=== PATIENT | female | born 1965 | race Caucasian/White ===

== ENCOUNTER → 2017-11-06 09:11 | Outpatient (CLI) | payer OTHER, SELFPAY ==
--- NOTE | 2017-11-06 | DI.ECHO.S_ITS ---
[place] [facility]+ [facility] +---------+ : : [address] : : : : [id number] : : : : Phone: [phone]+ Echocardiogram Report + + :Name: MIKA CARBALLO Study Date: 11/06/2017 Height: 66 in : :[facility] Exam Location: [facility] Weight: 250 lb : : Gender: Female BSA: 2.2 m2 : :: 1965 Age: 52 yrs BP: 160/95 mmHg: :Reason For Study: Hypertension : :Ordering Physician: LEI Bhardwaj : :Lisa Performed By: Edith Page : + + Interpretation Summary Normal sinus rhythm. Normal LV size; borderline concentric left ventricular hypertrophy; normal wall motion and left ventricular systolic function. The ejection fraction is estimated to be 60-65% There are no significant valvular abnormalities. No evidence of hypertensive heart disease. Procedure: A two-dimensional transthoracic echocardiogram with color flow and Doppler was performed. The study quality was technically adequate. There is no prior echocardiogram noted for this patient. A contrast injection of Definity was performed to improve assessment of LV function. The patient was in normal sinus rhythm during the exam. Left Ventricle: There is borderline concentric left ventricular hypertrophy. The left ventricle is normal in size. The ejection fraction is estimated to be 60-65%. Left ventricular wall motion is normal. Assessment of diastolic parameters indicates normal left ventricular diastolic function and normal filling pressures. Right Ventricle: The right ventricle is normal in size and function. Atria: Both atria are normal in size. There is no Doppler evidence for an interatrial shunt. Mitral Valve: The mitral valve is normal in structure and function. There is trace mitral regurgitation. Aortic Valve: The aortic valve is trileaflet. The aortic valve opens well. No aortic regurgitation is present. Tricuspid Valve: The tricuspid valve is normal in structure and function. There is a trace or physiologic amount of tricuspid regurgitation. The right ventricular systolic pressure is estimated at 22 mmHg assuming a right atrial pressure of 3 mm Hg. Pulmonic Valve: The pulmonic valve is not well visualized. There is trace pulmonic regurgitation. Great Vessels: The aortic root is normal size. The ascending aorta is mildly enlarged. The aortic arch could not be visualized. The pulmonary artery is not well visualized, but is probably normal size. The IVC is of normal diameter and collapses greater than 50% with a sniff. This suggests a low right atrial pressure of 3 mm Hg. Pericardium/ Pleura There is no pericardial effusion. There is no pleural effusion. MMode/2D Measurements & Calculations LVIDd: 4.7 cm Ao root diam: 3.5 cm LVIDs: 3.0 cm asc Aorta Diam: 3.5 cm FS: 37.7 % EPSS: 0.28 cm IVSd: 0.88 cm LVPWd: 1.1 cm LV carpio. diameter/BSA (cm/m^2): 2.2 LV sys. diameter/BSA (cm/m^2): 1.3 LA A2 area: 22.4 cm2 RA long axis: 5.3 cm LA A4 area: 20.3 cm2 RA area: 19.3 cm2 LA length (vol): 5.7 cm RA vol: 59.9 ml LA vol: 67.7 ml RA : 27.2 ml/m2 LA vol index: 30.8 ml/m2 IVC diam: 2.0 cm RVD1 (basal): 3.7 cm TAPSE: 2.5 cm Doppler Measurements & Calculations Ao V2 max: 174.6 cm/sec LVOT Max Mehrdad: 96.4 cm/sec Ao V2 mean: 106.2 cm/sec LV V1 max P.7 mmHg Ao max P.2 mmHg LV V1 VTI: 21.4 cm Ao mean P.3 mmHg sev ratio: 0.70 Ao V2 VTI: 30.6 cm MV E max mehrdad: 75.4 cm/sec TR max mehrdad: 217.2 cm/sec MV A max mehrdad: 63.7 cm/sec TR max P.9 mmHg MV E/A: 1.2 PA V2 max: 68.1 cm/sec Med Peak E' Mehrdad: 6.9 cm/sec PA V2 mean: 48.4 cm/sec E/E' med: 10.9 PA mean P.0 mmHg Lat Peak E' Mehrdad: 9.5 cm/sec PA Accel Time: 0.17 sec E/E' lat: 7.9 E/e' average: 9.4 MV dec time: 0.20 sec MV P1/2t: 55.7 msec MV P1/2t max mehrdad: 76.1 cm/sec MVA(P1/2t): 3.9 cm2 Reading Physician:07:19 PM
[2017-11-06 12:32] LABS: Add Manual Diff / Slide Review NO; Basophils Percent Auto 0.7 % (0-2); Eosinophils Percent Auto 1.7 % (2-4); Hematocrit 41.4 % (36-46); Mean Corpuscular HGB Conc 33.9 % (30-36); Mean Corpuscular Hemoglobin 30.8 PG (26-34); Monocytes Percent Auto 7.6 % (3-14); Neutrophils Absolute Auto 3700 /uL (3000-5900); Platelet Count 224 X10^3/uL (150-400); Red Blood Cell Count 4.55 X10^6/uL (4.0-5.2); Red Cell Distribution Width 14.4 % (11.6-14.8); White Blood Cell Count 6.2 X10^3/uL (4.5-11.0)
[2017-11-06 13:22] LABS: Alanine Aminotransferase 50 IU/L (9-52); Albumin 4.7 g/dL (3.5-5.0); Albumin Globulin Ratio 1.6 (1.0-2.8); Alkaline Phosphatase 87 U/L (38-126); Aspartate Aminotransferase 31 IU/L (14-36); Bilirubin Total 0.5 mg/dL (0.2-1.3); Bilirubin Unconjugated 0.2 mg/dL (0.0-1.1); Globulin 2.9 g/dL (1.7-4.1); HEMOLYSIS < 15 (0-50); Total Protein 7.6 g/dL (6.3-8.2)
== END ==
PROVIDERS: Family Provider Physician Assistant; Visit Provider Internal Medicine Endocrinology, Diabetes & Metabolism
DX: R07.9 Chest pain, unspecified (principal); I10 Essential (primary) hypertension; E05.90 Thyrotoxicosis, unspecified without thyrotoxic crisis or storm; E04.2 Nontoxic multinodular goiter
CPT/HCPCS: 36415; 80076; 85025; 93306; Q9957

== ENCOUNTER → 2017-12-26 09:07 | Outpatient (CLI) | payer OTHER, SELFPAY ==
--- NOTE | 2017-12-26 | DI.CT.S_ITS ---
PROCEDURE: CT CHEST W CON INDICATIONS: COUGH/SOB TECHNIQUE: After the administration of intravenous contrast, 5 mm thick sections acquired from the pulmonary apices to the posterior costophrenic angles. 7 mm thick coronal and sagittal MIP reformats were acquired. For radiation dose reduction, the following was used: automated exposure control, adjustment of mA and/or kV according to patient size. COMPARISON: Please correlate with recent thyroid ultrasound [facility], US, THYROID, 04/30/2017, 14:59. FINDINGS: Image quality: Excellent. Lungs and pleura: No acute consolidation. There is scattered subsegmental atelectasis and/or scarring No pleural effusions or pneumothorax. Central and peripheral airways are patent and normal in caliber. Mediastinum: Heart size is normal. No pericardial effusion. No mediastinal or hilar adenopathy by size criteria. Thoracic aorta and central pulmonary arteries are normal in size. Esophagus is normal in caliber. No hiatal hernia. Bones and chest wall: No suspicious bony lesions. No vertebral body compression fractures. No axillary or supraclavicular adenopathy by size criteria. Thyroid gland contains low density subcentimeter nodular foci within the right lobe. Please correlate with recent thyroid ultrasound from earlier this year Hepatic steatosis incidentally noted. IMPRESSION: No acute consolidation to explain cough/shortness of breath. Dictated by: Clarke Pittman M.D. on 12/26/2017 at 10:00 Approved by: Clarke Pittman M.D. on 12/26/2017 at 10:17
== END ==
PROVIDERS: Family Provider Physician Assistant; Visit Provider Physician Assistant
DX: R05 Cough (principal)
CPT/HCPCS: 71260; Q9967

== ENCOUNTER → 2020-01-02 09:56 | Outpatient (CLI) | payer OTHER, SELFPAY ==
[2020-01-03 06:32] LABS: COVID19 Sendout Not Detected (Not Detect)
== END ==
PROVIDERS: Family Provider Physician Assistant; Visit Provider Physician Assistant
DX: Z11.59 Encounter for screening for other viral diseases (principal)
CPT/HCPCS: 87635

== ENCOUNTER 2020-01-05 08:34 | Day surgery (SDC) | payer OTHER, SELFPAY ==
[2019-12-29 08:50] VITALS: BMI 43.4
[2020-01-05] VITALS (13 sets, daily range): BP systolic 112–153; BP diastolic 64–98; PULSE 77–91; RESP 12–20; TEMP 36.4–36.9; O2SAT 90–96; BMI 42.2
--- NOTE | 2020-01-05 06:41 | DI.RAD.S_ITS ---
PROCEDURE: XR KNEE RT 1TO2V COMPARISON: [facility], CR, XR KNEE ARTHRITIC SERIES BI, 10/29/2019, 9:12. [facility], CR, KNEE 3V LEFT, 12/24/2008, 14:24. INDICATIONS: total right knee FINDINGS: Three views of the right knee demonstrate postoperative changes of total knee replacement. Soft tissues demonstrate expected postoperative changes. Hardware is in good position with no perihardware lucency. IMPRESSION: Postoperative changes of total right knee replacement. Dictated by: Willy Monzon M.D. on 01/05/2020 at 13:12 Approved by: Willy Monzon M.D. on 01/05/2020 at 13:14
[2020-01-05] MEDS: PREGABALIN 75 MG CAPSULE PO (08:53)
[2020-01-05] MEDS: LACTATED RINGERS 1,000 ML 42 ML IV ×2 (08:53→12:27)
[2020-01-05] MEDS: ACETAMINOPHEN 325 MG TABLET 975 MG PO (08:53)
[2020-01-05] MEDS: CELECOXIB 200 MG CAPSULE PO (08:53)
--- NOTE | 2020-01-05 09:28 | PM.PREOP ---
Pre-operative Note COVID-19 COVID-19 status: Negative Result date/Date tested (Pos, Neg/Pending): 01/02/20 Interval Note History & Physical reviewed/Exam performed by Physician: Yes Changes to H&P: No
--- NOTE | 2020-01-05 09:39 | P.OP_ITS ---
Operative Date/Time/Diagnoses Date of procedure: 01/05/20 Time of procedure: 12:38 Pre-op diagnosis: Right knee posttraumatic osteoarthritis Post-op diagnosis: same Procedure & Clinicians Procedure: 1. Right total knee replacement 2. Removal of deep hardware Same procedure as scheduled: Yes Indications: The patient has had progressively worsening right knee pain with radiographic changes consistent with arthritis. There is evidence of prior surgery with 2 screws in the tibial tubercle. Non-operative management has failed and the patient has requested total knee replacement. The risks, benefits and alternatives to surgery were discussed with the patient prior to proceeding. Risks discussed included, but were not limited to, failure to relieve pain, stiffness, infection, nerve damage, deep venous thrombosis, pulmonary embolism, stroke, coma, heart attack, permanent paralysis and , as well as the potential need for eventual revision of the prosthetic. Surgeon: Brandon Kwan Reel Film Inspector: Coby Dobbins Click Yes if Unassisted: No Anesthesia Type: Local Operative Notes Findings: Severe patellofemoral and significant medial osteoarthritis. Closure Type: primary Specimen(s): none sent Prosthetic devices, grafts, tissues, transplants, or devices: Implants used in this procedure were manufactured by the [employer] and included the BCS II Journey total knee replacement with a size 5 right for Oxinium femoral component, size 4 right non porous tibial base plate, a 10 mm cross-linked polyethylene insert, and a 35 mm Racheal II oval patella. Applied: implant(s) Estimated Blood Loss (mL): 25 Blood products transfused: none Tourniquet time (min): 58 Procedure in detail: The patient was seen in the pre-operative area, where the patient identified the right knee as the operative site and this was marked with my initials. The patient received pre-operative antibiotics, and was taken to the operating room and placed on the operative table in the supine position. After satisfactory anesthesia, a time stamp assembler out was performed. The right leg was encircled with a tourniquet about the proximal thigh, and the leg was prepared from the toes to the tourniquet with ChloroPrep in the usual fashion and draped through sterile drapes. The leg was elevated and exsanguinated with Eschmark bandage and the tourniquet inflated to 250 mmHg pressure. The knee was approached through an approximately 18 cm incision centered over the patella and carried into the knee through a medial parapatellar arthrotomy. The anterior osteophytes and soft tissues were removed. The rotational landmarks of Silvestre's line and the transepicondylar axis were marked on the femur with electrocautery, and intramedullary guide holes for the femur and tibia were created. The distal femoral cut was made in 6 degrees of valgus using the intramedullary guide at the primary cut setting. The 26.5 mm cancellous screws that had been placed in her tibial tubercle and a prior surgery were identified and removed. The proximal tibial cut was then made using the intramedullary guide, taking 9 mm of bone off the less involved side. The extension gap was checked and the rotation of the femoral component confirmed with the gap balancing system. The anterior, posterior and chamfer cuts were then made. The posterior osteophytes and soft tissues were then removed. The posterior capsule was injected with part of a mixture of 60 ml 0.25% Marcaine mixed with 20 ml Exparel and 4 mg of morphine for post-operative pain control. The remainder of this mixture was injected into the capsule and subcutaneous tissues during cement curing. The tibia was prepared with the rotation set by an extra medullary guide. Trial tibial and femoral components were then placed and the intercondylar notch cut through the femoral trial. Range of motion was 0-135 degrees, with good stability throughout the range. The patella was then cut to accommodate the patellar prosthetic. There was no need for a lateral release. The trials were then removed, and the femoral hole plugged with a bone plug. The bone was prepared with pulsatile lavage, and dried with a sponge. Cement was applied and the final prosthetics placed. Excess cement was removed during and after cement curing. After confirming there was no extruded cement posteriorly, the final tibial insert was placed. The knee was copiously irrigated and the tourniquet deflated. Hemostasis was obtained. The capsule was closed with interrupted # 2 polyester suture. The subcutaneous layer was closed with 3-0 Vicryl, and the skin with a running 3-0 V-Lock suture and Dermabond. A Michael dressing was applied and the patient was taken to recovery having tolerated the procedure well. Complications: none Post-operative Condition: stable Disposition: PACU Plan for aftercare: The patient will be maintained on a standard total knee replacement protocol with weight bearing as tolerated. The patient will receive aspirin and sequential compression devices for DVT prophylaxis. The patient will be discharged home when safe for the home environment.
[2020-01-05] MEDS: CEFAZOLIN 2 GM/100 ML FROZ.PIGGY IV (10:23)
--- NOTE | 2020-01-05 11:01 | SUR.OPER ---
Supine on padded OR bed. Pillow under head, arms secured on padded armboards <90 degree abduction. Safety belt across torso. Non-operative leg secured with tape over blanket over lower leg. Operative leg secured in DeMayo/Milad positioner. Foam padded brace at thigh of operative leg.
[2020-01-05] MEDS: BUPIVACAINE LIPOSOME 266 MG/20 ML VIAL INJ (11:08)
[2020-01-05] MEDS: BUPIVACAINE 0.25% W/ EPI 30 ML VIAL 60 ML INJ (11:08)
[2020-01-05] MEDS: MORPHINE 4 MG/ML INJ INJ (11:08)
[2020-01-05] MEDS: TRANEXAMIC ACID 1,000 MG VIAL 1000 MG IV ×2 (11:13→11:55)
--- NOTE | 2020-01-05 13:39 | SUR.PHASEI ---
1305-Report from GUNNER Glasgow. Pt laying comfortably in bed denies pain or nausea. Pt asked to sit up bed positioned appropriately and pt offered juice, sitting up drinking cranberry juice without problems. Report called to GUNNER Moss and pt transported to floor room 202 in stable condition with no c/o and all belongings at 1315
--- NOTE | 2020-01-05 13:54 | PC.NURSE ---
Patient arrived from PACU to room 202. Oriented to room and call light. Denies pain, wiggling and moving feet. Calf SCD's on. RUBY dressing and JOSSY wrap to right knee, CDI, no drainage noted. Denies n/v, advance diet as tolerated. vss, on 3L NC upon arrival. Continue to monitor, continue with post op education.
[2020-01-05] MEDS: LACTATED RINGERS 1,000 ML 100 ML IV ×2 (14:02→22:33)
[2020-01-05] MEDS: IBUPROFEN 400 MG TABLET PO ×3 (14:34→21:26)
[2020-01-05] MEDS: ACETAMINOPHEN 325 MG TABLET 650 MG PO ×2 (14:34→21:26)
[2020-01-05] MEDS: OXYCODONE IR 5 MG TABLET PO (14:35)
--- NOTE | 2020-01-05 16:42 | PC.NURSE ---
Addendum entered by Haley Peoples R.N. 01/05/20 21:47: Pt assisted to BR to void. Voided clear yellow urine. States discomfort at a 5/10 IVF continue as per orders w/o incidence. Dsg to right surgical knee CDI, RUBY intact. Stable post op course. Call light w/in reach, bed alarm on for pt safety. Continue w/plan of care. Original Note: Pt awake, denies discomfort at this time. Lungs clear, slightly diminished at bases. IVF LR @ 100cc/hr infusing into LFA via pump w/o incidence. RUBY dsg to right knee CDI, CSM ++ Ambulated in hallway w/PT w/o incidence. Call light w/in reach, bed pt calls appropriately for needs.
--- NOTE | 2020-01-05 16:56 | PT.IIE ---
Current Diagnoses Unilateral primary osteoarthritis, right knee (01/05/20) Other specified joint disorders, right knee (01/05/20) Surgery Performed Operation Date: 01/05/20 10:15 Actual Procedures p Total knee arthroplasty,Removal implant deep(Right) - Brandon Kwan MD Surgical History (Last Updated 12/29/19 @ 09:16 by Katelin Turner RN) H/O right wrist surgery (Acute ~1994) History of hysterectomy (Acute) Hx of arthroscopy of right knee (Acute) Medical History (Last Updated 12/29/19 @ 09:16 by Katelin Turner RN) Anxiety (Acute) Brain aneurysm (Acute 2018) HLD (hyperlipidemia) (Acute) HTN (hypertension) (Acute) Hyperthyroidism (Acute) Osteoarthritis (Acute) Physical Therapy Inpatient Evaluation/Re-Eval M1 PT/OT-IP Prior Functional Status Start: 01/05/20 15:43 Freq: NEEDED Status: Active Protocol: Document 01/05/20 16:32 DE (Rec: 01/05/20 16:49 DE [id number]) Medical Review Prior Functional Status Medical History Reviewed Yes Diet/Fluid Consistency Regular Communication WNL. No deficits noted. Able to make needs known. Mobility and Gait IND at baseline with all activities and mobility. Activities of Daily Living and IADL's IND at baseline with all ADLs and IADLs. Prior Functional Level (Other details) Pt has hx of multiple knee surgeries. Social History Household Members spouse,family Living Arrangements House Number of Floors (Floors) One Floor Number of Stairs To Enter/Railing? 3 PF KELY, no railing. Home Environment Standard Height Toilet,High Toilet,Walk in Shower,Tub/ Shower Home Equipment Front Wheel Walker,Tub Transfer Bench,Hand Held Shower Employment Status Lead Electrical Engineer Employed Additional Social History Comment Pt lives with spouse and her mother, who are both IND. Pt's spouse will be available 02/10 to assist at home for the first week and then her mother will help after that. Pt works as a follow up manager at [employer] and is planning to return to work in 6 weeks. M2 PT-IP Current Condition Start: 01/05/20 15:43 Freq: NEEDED Status: Active Protocol: Document 01/05/20 16:39 AW (Rec: 01/05/20 16:55 AW [id number]) Physical Therapy Current Condition Current Condition Evaluation Date 01/05/20 Treatment Diagnosis R TKA; difficulty in walking Onset Date 01/05/20 Weight Bearing Status Weight Bearing Status Weight Bear as Tolerated M3 PT-IP Subjective Start: 01/05/20 15:43 Freq: NEEDED Status: Active Protocol: Document 01/05/20 16:39 AW (Rec: 01/05/20 16:55 AW [id number]) Subjective Physical Therapy Visit Type Type Initial Evaluation Visit Start Time 16:00 Visit Stop Time 16:29 Total Visit Minutes 29 Notes SPT Leodan was present and participated in evaluation under supervision of this PT. Physical Therapy Visit Comments Patient Comments Pt is willing to participate with PT. Therapy Pain Assessment Pain When Pain Assessed During Mobility Pain Present Pain Present Pain Reported Location Right Knee Intensity 7 Scale Used 5/10 at rest; 7/10 with mobility Pain Management Techniques Apply Cold,Elevation,Timing of Activity with Medications M4 PT-IP Mobility and Gait Start: 01/05/20 15:43 Freq: NEEDED Status: Active Protocol: Document 01/05/20 16:39 AW (Rec: 01/05/20 16:55 AW [id number]) PT-Bed Mobility Assessment Supine to Sit Supine to Sit Contact Guard Assistance,1 Person Assistance Scooting Scooting to Edge of Bed Standby Assistance PT-Transfer Assessment Sit to and From Stand Sit to and from Stand Contact Guard Assistance,Use of Upper Extremities Equipment Transfer Assistive Device Gait Belt,Front Wheeled Walker Orthotic/Prosthetic Devices or Brace: No Transfers Transfer Destination Chair Transfer Technique pt ambulated with FWW Transfer Ability Level of Assist Contact Guard Assistance Comments Mobility Comments Pt was reclined in the bed as PT and SPT arrived. With HOB flat, she required CGA to move her legs to the right side of the bed and complete supine to sit. Pt sat EOB without need for UE support before standing from the bed in lowest position CGA. Pt stood and shifted weight laterally with heavy BUE weightbearing on FWW before walking to the sink [facility]. Pt then donned her face mask and proceeded to walk in the halls for a total of 80 feet. Gait was notable for step-to patterning but pt stated weightbearing did not hurt as much as she thought it would. She was able to correct to step-through gait after education and demonstration. Pt returned to the room and transferred to the bedside chair [facility]. Pt was left with call light and all needs within reach. Gait Assessment Gait Gait Assistance Required: Contact Guard Assist Distance (Feet) 80 Able to Maintain Weight Bearing Status Yes During Gait Assistive Devices Assistive Device Gait Belt,Front Wheeled Walker Orthotic/Prosthetic Devices or Brace: No Gait Deviations General Gait Pattern Antalgic,Decreased Stride Length,Decreased Feet Clearance,Flexed Trunk,Step-to Gait Factors Limiting Gait Function Factors Limiting Gait Function Decreased Activity Tolerance, Decreased Sensation,Decreased Strength,Limited Range of Motion,Pain,Poor Balance Comments Gait Comments See mobility comments for details. Stair Climbing Assessment Comments Stair Climbing Comments Not assessed on POD0. Pt will need to clear stairs prior to discharge. PT-Balance Assessment Sitting Balance and Reactions Static Sitting Balance Ability Good Dynamic Sitting Balance Ability Good Standing Balance and Reactions Static Standing Balance Ability Good Dynamic Standing Balance Ability Good Device Used FWW M5 PT-IP Objective Assessments Start: 01/05/20 15:43 Freq: NEEDED Status: Active Protocol: Document 01/05/20 16:39 AW (Rec: 01/05/20 16:55 AW [id number]) Orientation Orientation/Cognition Level of Alertness Alert Orientation Name,Day of Week,Place, Situation Language Function Ability No Deficits Noted Safety Awareness Understands Safety Issues Memory Description No Deficits Noted Gross Range of Motion Lower Extremity ROM Assessment Right Impaired Strength Lower Extremity Strength Assessment Right Impaired Hip 4/5 Knee 3/5 Ankle 4+/5 Coordination Assessment Gross Coordination Gross Coordination WNL Sensation Assessment Sensation Gross Sensation WNL Comments Sensation Comments Pt denies numbness in BLE. M6 PT-IP Treatment Start: 01/05/20 15:43 Freq: NEEDED Status: Active Protocol: Document 01/05/20 16:39 AW (Rec: 01/05/20 16:55 AW [id number]) Physical Therapy Treatment Exercises Exercises Ankle Pumps,Gluteal Sets,Quad Sets,Heel Slides Education Education Provided Precautions,Weight Bearing Status,Post-Op Packet,Safety Other Treatments Other Treatment Performed Provided education on role of PT, plan of care, weightbearing status, and safe use of FWW. M7 PT-IP Assessment and Plan Start: 01/05/20 15:43 Freq: NEEDED Status: Active Protocol: Document 01/05/20 16:39 AW (Rec: 01/05/20 16:55 AW [id number]) PT Summary Assessment and Plan Potential Rehabilitation Potential Good Status of Condition at Evaluation Evolving Summary Impairments Pain,ROM,Strength,Balance, Sensation,Bed Mobility, Transfers,Gait Assessment Summary Grace is a 54 yo woman seen for PT evaluation on POD0 following R TKA. She is indepenent in all regards at baseline. At evaluation, pt required CGA with all mobilities including ambulation with FWW. PT anticipates this pt will progress and be safe to discharge to home environment with assist and outpatient PT once medically cleared. Goals Bed Mobility Goal Independent Transfer Goal Independent,Front Wheeled Walker Gait Goal Standby Assistance,Front Wheel Walker Gait Distance 200 Other Goals - up/down platform step x 2 with FWW SBA Days to Meet Goals 3 Frequency of Treatment Frequency Of Treatment Twice a Day Treatment Plan Physical Therapy Treatment Plan Bed Mobility Training,Transfer Training,Gait Training, Therapeutic Exercise,Balance Retraining,Post Op Education, Discharge Planning,Hot or Cold Pack,Neuromuscular Re-ed, Manual Therapy Other Recommendations and Next Treatment progress gait training, Focus distance; stairs when appropriate Recommendations To Nursing Amount of Assist Needed 1 Person Assist Discharge Recommendations PT Discharge Recommendations Home with Assistance, Outpatient PT Transportation Needs at Discharge Private Vehicle
[2020-01-05] MEDS: OXYCODONE IR 10 MG TABLET PO ×2 (17:56→22:34)
[2020-01-05] MEDS: AMLODIPINE 5 MG TABLET PO (17:57)
[2020-01-05] MEDS: ASPIRIN EC 81 MG TABLET PO (21:26)
[2020-01-05] MEDS: SIMVASTATIN 20 MG TABLET PO (21:27)
[2020-01-05] MEDS: hydrOXYzine pamoate 25 MG CAPSULE PO (23:48)
[2020-01-06] MEDS: IBUPROFEN 400 MG TABLET PO ×3 (00:32→08:16)
--- NOTE | 2020-01-06 00:38 | PC.NURSE ---
Addendum entered by Soledad Stacy R.N. 01/06/20 06:48: Complains of 7/10 left knee pain; medicated with Oxycodone. Addendum entered by Soledad Stacy R.N. 01/06/20 02:05: States pain is currently 5/10 so medicated with Oxycodone but declined ice pack Original Note: Patient seen and assessed at 2352. Is alert and oriented. Breath sounds CTA with RA sat of 93% but when falling asleep sat dropping down into upper 80's so placed on oxygen at 1L. Patient just called stating oximeter still alarming intermittently when she falls asleep so oxygen increased to 2L/min. HRR. Denies nausea. BT hypoactive; denies flatus. Denies dysuria, frequency or urgency with urination. Is able to move herself in bed and is up with walker and 1 assist due to weakness in left knee. RUBY dressing intact and functioning; covered with radhames wrap and no drainage noted. Did complain of 6/10 pain and had been medicated with Oxycodone at 2234 so was medicated with Vistarl at this time and now states pain is much improved and tolerable. Ice packs applied to knee. CMS is intact. Wearing bilateral calf SCD's. Fall risk score is moderate but patient is calling for assistance appropriately and spouse is rooming in so alarm is not activated.
[2020-01-06] MEDS: OXYCODONE IR 5 MG TABLET PO ×3 (02:04→08:17)
[2020-01-06 05:00] VITALS: BP 134/81; PULSE 94; RESP 12; TEMP 36.3; O2SAT 95
[2020-01-06 07:28] LABS: Hematocrit 34.4 % (36-46); Hemoglobin 11.8 g/dL (12.0-16.0)
[2020-01-06 07:42] VITALS: BP 136/75; PULSE 80; RESP 18; TEMP 37.2; O2SAT 95
--- NOTE | 2020-01-06 07:47 | PM.DS.1 ---
History of Present Illness History of Present Illness Date Patient Seen: 01/06/20 Time Patient Seen: 07:47 Chief complaint: Right Total Knee Arthroplasty Narrative: The history and physical is contained in the chart previously completed note. Please refer to that note for this information. Discharge Providers Provider Discharge Date: 01/06/20 Primary care physician: Lashae Gonzalez PA-C Consults: 01/05/20 13:31 Consult to Discharge Planning Routine Comment: Consult to Physical Therapy Evaluate & Treat Comment: Physician Instructions: postop TKA protocol Discharge provider: Brandon Kwan MD Summary Hospital Course Discharge Diagnosis: 1. Post traumatic osteoarthritis of the right knee 2. Post hemorrhagic anemia 3. Retained orthopedic hardware, right knee Hospital Course: The patient was admitted to the hospital and taken directly to the operating room on January 05, 2020 where she underwent a right total knee replacement. She also had removal of 2 deep screws from a prior tibial tubercle transfer. She tolerated the procedure well and was comfortable on the morning of postoperative day 1. At the time of this dictation the plan is for her to have physical therapy and likely go home later this morning. Status at Discharge Cognitive/behavioral status at discharge: oriented Functional status at discharge: uses cane/walker Overall status at discharge: patient is progressing back to baseline Time Spent with Patient Time spent: Less than 30 minutes Exam Vital Signs (past 8 hours): - 01/05/20 23:55 01/06/20 05:00 Temperature 98.3 F 97.4 F L Pulse Rate 88 94 H Respiratory Rate 18 12 Blood Pressure 129/70 134/81 Pulse Oximetry 93 95 Oxygen Delivery Method Nasal Cannula Oxygen Flow Rate 2 Narrative Exam Narrative: Right knee wound is dressed with no drainage on the bandage. Calf is soft. Light touch and motion are intact in the right lower extremity. Objective Labs Result Diagrams: 01/06/20 06:43 Labs: Laboratory Results - last 24 hr 01/06/20 06:43 Hgb 11.8 L Hct 34.4 L Discharge Assessment & Plan Assessment and Plan Assessment: The patient is stable postoperative day 1 status post right total knee replacement with removal of deep hardware. She has a mild post hemorrhagic anemia. Plan of Treatment: Physical therapy this morning with likely discharged later this morning. Follow-up at my office in 10-14 days. Discharge prescriptions are on the chart for oxycodone and Vistaril. Instructions for the use of ibuprofen and Tylenol for pain control and the use of low-dose aspirin for DVT prophylaxis of also been provided. Discharge Plan Discharge Plan Patient Disposition: Home Discharge orders & Medications Discharge Orders: Discharge (Order); Ordered 01/06/20 Ordered By: Brandon Kwan Prescriptions: New acetaminophen 325 mg Tablet 650 mg PO TID 30 Days Qty: 180 RF: 0 aspirin 81 mg Tablet,Delayed Release (Dr/Ec) 81 mg PO BID 42 Days Qty: 84 RF: 0 hydroxyzine pamoate 25 mg Capsule 25 mg PO Q6HR PRN (Reason: Nausea) Qty: 30 RF: 0 ibuprofen 400 mg Tablet 400 mg PO Q4H 30 Days Qty: 180 RF: 0 oxycodone 5 mg Tablet 5 mg PO Q4H Qty: 40 RF: 0 Continued amlodipine 5 mg Tablet 5 mg PO QPM RF: 0 losartan-hydrochlorothiazide 100-25 mg Tablet 1 tab PO DAILY RF: 0 citalopram 20 mg Tablet 20 mg PO DAILY RF: 0 simvastatin 20 mg Tablet 20 mg PO DAILY RF: 0 methimazole 5 mg Tablet 7.5 mg PO DAILY RF: 0 Discontinued aspirin 81 mg Tablet,Delayed Release (Dr/Ec) 81 mg PO DAILY RF: 0 Follow up/Referrals: Brandon Kwan MD [Physician] - 2 Weeks Diet/Activity/Treatments Diet: Diet as Tolerated and Regular Activity: You may bear weight as tolerated on your right leg. Skin/Wound/Dressing Care Report to your healthcare provider any signs of infection, such as:: chills, fever, night sweats, increased pain, unusual drainage and unusual redness Dressing: You may remove the Randolph wrap 3 days after surgery and shower normally. Disconnected the battery pack from the deeper dressing before showering. One week after surgery you may remove the deeper dressing and apply a light gauze dressing. This will need to be removed for showering. Visit Report/Discharge Packet Instructions: DI for Knee Replacement Stand Alone Forms: Surgery Discharge Discharge Data Primary Care Provider: Lashae Gonzalez Attending Provider: Brandon Kwan
[2020-01-06] MEDS: ACETAMINOPHEN 325 MG TABLET 650 MG PO (08:12)
[2020-01-06] MEDS: DOCUSATE 100 MG CAPSULE PO (08:12)
[2020-01-06] MEDS: CITALOPRAM 10 MG TABLET 20 MG PO (08:12)
[2020-01-06] MEDS: ASPIRIN EC 81 MG TABLET PO (08:12)
[2020-01-06] MEDS: hydroCHLOROthiazide 25 MG TABLET PO (08:12)
[2020-01-06 08:13] VITALS: BP 134/65
[2020-01-06] MEDS: LOSARTAN 50 MG TABLET 100 MG PO (08:13)
[2020-01-06] MEDS: methIMAzole 5 MG TABLET 7.5 MG PO (08:16)
--- NOTE | 2020-01-06 09:28 | CM.DANOTE ---
DCP/Assessment: Reviewed chart. Patient is a 54yr old female admitted to [facility] for right TKA performed on 01-05-[address] Kwan. PCP is Lashae Gonzalez. Primary payor is [employer]. Met with patient and spouse at bedside explained role. Patient reports that she has all needed DME and plans to go to outpatient therapy after d/c. Patient does not anticipate any d/c planning needs. Spouse very supportive. P: Home when stable. Patient anticipated to d/c today after seen by therapy. MARK Her Discharge Planning/Care Management CM Discharge Assessment Start: 01/06/20 09:26 Freq: Status: Active Protocol: Document 01/06/20 09:26 KJ (Rec: 01/06/20 09:28 KJ [id number]) Discharge Planning Assessment Assigned Medical Device Sales Consultant MARK Her Contact Information Tj Pryor (spouse) [phone] Advance Directives? No History Provided By Patient,Significant Other, Medical Record Has Patient been admitted in last 30 No days? Prior Living Arrangements House Household Members spouse,family Type of transporation used prior to Drives own vehicle admit Independent with ADL's Yes Is patient alert and oriented? Yes Caregiver for Another No DME Already Rented / Owned FWW / Walker Patient/Family Preference OP PT Therapy Comment Patient going to outpatient therapy at [facility] in [place]. Barriers to Discharge No Discharge Plan Home Transportation Arrangement Spouse to provide transport. Referrals Initiated None needed Whiteboard Updated in Patient Room with Yes name and ext. # of Medical Device Sales Consultant Review Status In Process Next Review Type Continued Stay Review Pre-Anesthesia Assessment Start: 12/29/19 08:50 Freq: Status: Complete Protocol: Document 12/29/19 08:50 CAB (Rec: 12/29/19 09:54 CAB [id number]) Pre-Anesthesia Assessment Patient Information Reviewed Via Phone Assessment Assessment Completed With Patient Comment Labs/EKG done per pt, not available, COVID screen @ 01/02/20 Primary Care Provider Lashae Gonzalez Medical Clearance Received Yes Seen Specialist in Last 12 Months Yes Specialist Seen Wind Tunnel Technician,Orthopedist Comment PCP clearance scanned to record Primary Language Estonian Physician Assistant Required No Height 165.1 cm Weight 118.388 kg Body Mass Index (BMI) 43.4 Hearing Ability Normal Visual Assist Glasses Dentition Type Teeth, Natural Present Barriers to Learning None Hx Anesthesia Reactions No Hx Family Anesthesia Reaction No Hx Malignant Hyperthermia No Hx Blood Transfusions No Anesthesia Review Requested No alcohol intake current alcohol intake frequency a few times a week Smoking Status Former smoker Tobacco type cigarettes how long ago did patient quit smoking Quit 2004 Substance Use Type does not use Pain Present Pain Reported Musculoskeletal Symptoms Abnormal Gait,Difficulty Walking,Joint Pain History of Falling (Recent or History of No ) Patient is completely paralyzed or No completely immobile Mental Status Oriented to own ability Is patient on oxygen? No Does patient have NÚÑEZ/SOB No Hx Sleep Apnea No Currently Taking a Beta Britni No Can You Climb a Flight of Stairs Without Yes SOB Hx Chest Pain Yes: Atypical-ER @ [facility] work-up 2016 negative Hx SOB No Hx Syncope or Dizziness No Anti-Coagulant Therapy Yes: 81mg ASA for brain aneurysm Has a Lotus Notes Administrator No Cardiac Testing Yes: Stress test 12/15/19 r/t abn EKG, negative for ischemia Hx Pacemaker/ICD No Pacemaker Rep Required? No Cardiac Clearance Received Not Applicable Comment Cardiac test scanned to record Diet Type At Home Regular dysphagia No Urinary Catheter Present No Hx Urinary Self Catheterization No Diabetes No Patient No Lactating No Hx Drug Resistant Organism No Presence of External or Internal Medical Yes: Brain coil Devices Have you had any close contact with No someone diagnosed with COVID-19? Marital Status Lives With spouse,family Prior Living Arrangements House Number of Floors (Floors) One Floor Support System Spouse Does the Patient Have Assistance After Yes Surgery Patient Discharge Plan Description Return Home Comment Pt advised 1 night length of stay per surgeon Feels Safe in Current Environment Yes Been Physically Hurt or Threatened By a No Person in Current Environment Do you have thoughts of harming yourself None or others? Are you currently considering suicide? No Do you have a plan to hurt yourself or No Plan others? Do You Have Any Spiritual Beliefs That No May Affect Your HC Choices? Do You Have Any Cultural Practices That No May Affect Your HC Choices? Comment Taoist Who Can We Speak to About Patient's Care Family, friends Identifying Code for Release of Patient Declines to issue Information Health Care Proxy/Next of Kin Tj () Health Care Proxy Emergency Contact Name Tj () Emergency Contact Advance Directives? No Power of Package Collector No PAC Instructions Do not shave/clip surgical site,Durable medical equipment ,Medications to take/avoid, Nasal antibiotic,No ETOH/ petroleum product on skin DOS, Pre-surgical wash,Sturdy shoes /comfortable clothes,Do not bring valuables and remove jewelry
--- NOTE | 2020-01-06 09:52 | PC.NURSE ---
Addendum entered by Alpa Hood R.N. 01/06/20 12:28: d/c instructions including Rx meds, s/sx of infection, wound care, and f/u appt provided to patient and pt's ; pt d/c via wheelchair and escorted to private vehicle Original Note: Pt reports improved pain control of 08/19; PICCO/Randolph wrap intact, ice to right knee, c/m/s positive, ppp, ankle waves; ls clear, IS 2000 X 5 breaths every hour; ice water at bedside, IV fluids d/c, patient sitting up to chair; call light within reach
--- NOTE | 2020-01-06 11:03 | PT.IPTN ---
Current Diagnoses Unilateral primary osteoarthritis, right knee (01/05/20) Other specified joint disorders, right knee (01/05/20) Surgery Performed Operation Date: 01/05/20 10:15 Actual Procedures p Total knee arthroplasty,Removal implant deep(Right) - Brandon Kwan MD Physical Therapy Treatment Note M2 PT-IP Current Condition Start: 01/05/20 15:43 Freq: NEEDED Status: Discharge Protocol: Document 01/05/20 16:39 AW (Rec: 01/05/20 16:55 AW [id number]) Physical Therapy Current Condition Current Condition Evaluation Date 01/05/20 Treatment Diagnosis R TKA; difficulty in walking Onset Date 01/05/20 Weight Bearing Status Weight Bearing Status Weight Bear as Tolerated M3 PT-IP Subjective Start: 01/05/20 15:43 Freq: NEEDED Status: Discharge Protocol: Document 01/06/20 10:25 CLB (Rec: 01/06/20 13:07 CLB [id number]) Subjective Physical Therapy Visit Type Type Treatment Note Visit Start Time 10:25 Visit Stop Time 11:03 Total Visit Minutes 38 Notes Bill present for tx session. Number of WOOD BLOCK ARTIST Visits 1 Physical Therapy Visit Comments Patient Comments Pt is willing to participate with therapy. Therapy Pain Assessment Pain When Pain Assessed During Mobility Pain Present Pain Present Pain Reported Location Right Knee Intensity 4 Pain Management Techniques Apply Cold,Timing of Activity with Medications M4 PT-IP Mobility and Gait Start: 01/05/20 15:43 Freq: NEEDED Status: Discharge Protocol: Document 01/06/20 10:25 CLB (Rec: 01/06/20 13:07 CLB [id number]) PT-Bed Mobility Assessment Sit to Supine Sit to Supine Standby Assistance PT-Transfer Assessment Sit to and From Stand Sit to and from Stand Standby Assistance,Use of Upper Extremities Equipment Transfer Assistive Device Gait Belt,Front Wheeled Walker Orthotic/Prosthetic Devices or Brace: No Transfers Transfer Destination Bed Transfer Technique pt ambulated with FWW Transfer Ability Level of Assist Standby Assistance,Use of Upper Extremities Comments Mobility Comments Pt sitting reclined in chair upon arrival. Pt performed seated therapeutic exercises then stood from chair SBA. Pt ambulated to BR sitting on toilet SBA with use of wall rail, pt performed all percare independently. Pt ambulated to sink and washed hands with steady balance. Pt then ambulated in junior to therapy stairs climbing one platform step x2 with FWW SBA then CGA with assisting. Pt continued with ambulation in junior w/FWW/SBA for a total of 230ft. Pt returned to room performing [id number] SBA and performed exercises in bed. Left pt in bed with alarm on and all needs within reach, present. Informed RN of pt mobility and able to d/c home with assist of . Gait Assessment Gait Gait Assistance Required: Standby Assistance Distance (Feet) 230 Able to Maintain Weight Bearing Status Yes During Gait Assistive Devices Assistive Device Gait Belt,Front Wheeled Walker Orthotic/Prosthetic Devices or Brace: No Gait Deviations General Gait Pattern Antalgic,Decreased Stride Length,Decreased Feet Clearance,Flexed Trunk,Step-to Gait Factors Limiting Gait Function Factors Limiting Gait Function Decreased Activity Tolerance, Decreased Sensation,Decreased Strength,Limited Range of Motion,Pain,Poor Balance Comments Gait Comments Pt ambulated ~230ft w/FWW/SBA, pt using step to gait pattern to start, after cuing for walker management and small step thru pt able to ambulate with small step thru gait pattern. Pt has steady gait and good safety awareness. Stair Climbing Assessment Evaluation Level of Assist On Stairs Standby Assistance,Contact Guard Assistance,1 Person Assistance Devices Stair Climbing Assistive Devices Front Wheel Walker Technique/Endurance Stair Climbing Direction Ascend and Descend Stair Climbing Technique Step to Step Number of Steps Climbed 1 Stair Climbing Set # Repetitions (reps) 2 Comments Stair Climbing Comments Pt climbed stairs SBA with WOOD BLOCK ARTIST and CGA with husbands assist. Pt able to recall proper sequencing. PT-Balance Assessment Sitting Balance and Reactions Static Sitting Balance Ability Good Dynamic Sitting Balance Ability Good Standing Balance and Reactions Static Standing Balance Ability Good Dynamic Standing Balance Ability Good Device Used FWW M5 PT-IP Objective Assessments Start: 01/05/20 15:43 Freq: NEEDED Status: Discharge Protocol: Document 01/05/20 16:39 AW (Rec: 01/05/20 16:55 AW [id number]) Orientation Orientation/Cognition Level of Alertness Alert Orientation Name,Day of Week,Place, Situation Language Function Ability No Deficits Noted Safety Awareness Understands Safety Issues Memory Description No Deficits Noted Gross Range of Motion Lower Extremity ROM Assessment Right Impaired Strength Lower Extremity Strength Assessment Right Impaired Hip 4/5 Knee 3/5 Ankle 4+/5 Coordination Assessment Gross Coordination Gross Coordination WNL Sensation Assessment Sensation Gross Sensation WNL Comments Sensation Comments Pt denies numbness in BLE. M6 PT-IP Treatment Start: 01/05/20 15:43 Freq: NEEDED Status: Discharge Protocol: Document 01/06/20 10:25 CLB (Rec: 01/06/20 13:07 CLB [id number]) Physical Therapy Treatment Exercises Exercises Ankle Pumps,Quad Sets,Heel Slides,Straight Leg Raises, Short Arc Quads,Passive Knee Extension Hang Education Education Provided Weight Bearing Status,Post-Op Packet,Safety M7 PT-IP Assessment and Plan Start: 01/05/20 15:43 Freq: NEEDED Status: Discharge Protocol: Document 01/06/20 10:25 CLB (Rec: 01/06/20 13:07 CLB [id number]) PT Summary Assessment and Plan Potential Rehabilitation Potential Good Status of Condition at Evaluation Evolving Summary Impairments Pain,ROM,Strength,Balance, Sensation,Bed Mobility, Transfers,Gait Assessment Summary Pt is SBA for bed mobility, sit<>stand and gait. Pt able to ambulate with small step thru gait pattern with steady gait and good safety awareness . Pt required AAROM with SAQ and LAQ and cues for compensation during heel slide in sitting. Pt able to bend knee to ~45 degrees. Pt seems able to d/c home with assist of when medically stable. Goals Bed Mobility Goal Independent Transfer Goal Independent,Front Wheeled Walker Gait Goal Standby Assistance,Front Wheel Walker Gait Distance 200 Other Goals - up/down platform step x 2 with FWW SBA Days to Meet Goals 3 Frequency of Treatment Frequency Of Treatment Twice a Day Treatment Plan Physical Therapy Treatment Plan Bed Mobility Training,Transfer Training,Gait Training, Therapeutic Exercise,Balance Retraining,Post Op Education, Discharge Planning,Hot or Cold Pack,Neuromuscular Re-ed, Manual Therapy Recommendations To Nursing Amount of Assist Needed 1 Person Assist Discharge Recommendations PT Discharge Recommendations Home with Assistance, Outpatient PT Transportation Needs at Discharge Private Vehicle
[2020-01-06] MEDS: OXYCODONE IR 10 MG TABLET PO (11:08)
== END 2020-01-06 11:45 | disposition home or self-care (01) ==
LOC: OR 08:40 → AC 10:58
PROVIDERS: Family Provider Physician Assistant; PCP Physician Assistant; Referring Provider Orthopaedic Surgery; Visit Provider Orthopaedic Surgery
PROC: 0SRC0JZ Replacement of Right Knee Joint with Synthetic Substitute, Open Approach (ICD-10-PCS; CPT 27447; principal; 2020-01-05 10:15)
DX: M17.11 Unilateral primary osteoarthritis, right knee (principal); M25.861 Other specified joint disorders, right knee; I10 Essential (primary) hypertension
CPT/HCPCS: 27447; 36415; 73560; 85014; 85018; 97110; 97116; 97161; 97530; C1776; C9290; J0690; J2250; J2270; J2274; J2704